=== PATIENT | female | born 1950 | race Caucasian/White ===

== ENCOUNTER 2025-01-13 15:26 | Emergency (ER) | payer OTHER, MEDICARE ==
[2025-01-13] MEDS ORDERED: TDAP (DIPHTH,PERTUSS(ACELL),TET VAC) 0.5 ML VIAL IMVAC ONE (16:58)
[2025-01-13] MEDS ORDERED: LIDOCAINE 1% 20 ML MDV ONE (16:58)
--- NOTE | 2025-01-13 17:24 | RAD REPORT ---
EXAMINATION: CT LUMBAR SPINE WITHOUT CONTRAST CLINICAL INDICATION: Fall with back pain TECHNIQUE: Axial CT images were obtained through the lumbar spine in soft tissue and bone windows wit hout intravenous contrast. Coronal and Sagittal reformatted images were created from the data set. One or more of the following dose reduction techniques were used: Automated exposure control, adjustm ent of the mA and/ or kV according to patient size, and/or iterative reconstruction. Unless otherwise specified, incidental findings do not require dedicated imaging follow-up. COMPARISON: No prior exam. FINDINGS: For purposes of this dictation, it is assumed that there are 5 non rib-bearing lumbar type vertebrae, and the most caudal fully segmented lumbar vertebra is labeled L5. Nondisplaced fracture left transverse process L1. Mildly displaced fracture left transverse process of L3 No dislocation. Neurostimulator device in place IMPRESSION: Fractures left transverse processes L1 and L3
--- NOTE | 2025-01-13 17:30 | RAD REPORT ---
EXAMINATION: CT PELVIS WITHOUT CONTRAST CLINICAL INDICATION: Pelvic pain status post fall TECHNIQUE: CT pelvis was performed, without IV contrast, as per department protocol. Axial, sagittal and coronal reconstructions were obtained. One or more of the following dose reduction techniques were used: Automated exposure control, adjustment of the mA and/or kV according to patient size, and/ or iterative reconstruction. Unless otherwise specified, incidental findings do not require dedicated imaging follow-up. COMPARISON: No prior exam. FINDINGS: No pelvic fracture seen. No dislocation A significant hip joint effusion not present. Visualized muscles and subcutaneous tissues unremarkable IMPRESSION: No pelvic fracture seen
[2025-01-13] MEDS ORDERED: HYDROCODONE/APAP 7.5/325 MG TAB ONE (17:50)
--- NOTE | 2025-01-13 17:55 | EDPHYS ---
Physician Documentation [facility] Name: Elina Sanarbia Age: 74 yrs Sex: Female : 1950 Arrival Date: 01/13/2025 Time: 15:26 Bed 11 Private MD: RAFAT Physician Luis Manuel Reid HPI: 01/13 17:06 This 74 yrs old Female presents to ER via Wheelchair with complaints of Fall Injury. sb4 17:06 Patient states that she slipped and fell backwards into a shrub. Is complaining of pain sb4 in her left low back and also sustained a puncture wound/laceration to the region. Does not think that her tetanus shot is up-to-date. States that her pain is okay while she is sitting still, but intensifies when she stands or moves. Historical: - Allergies: 15:58 Codeine; bp 15:58 Sulfa (Sulfonamide Antibiotics); bp 15:58 Erythromycin; bp 15:58 TETRACYCLINES; bp - PMHx: 15:58 Hypertensive disorder; Depressive disorder; Gastroesophageal reflux disease; bp Hypercholesterolemia; - Immunization history:: Adult Immunizations up to date. - Infectious Disease History:: Denies. - Social history:: Smoking status: Patient denies any tobacco usage or history of. ROS: 17:06 Constitutional: Negative for fever, chills, and weight loss, sb4 17:06 MS/extremity: Positive for injury or acute deformity, pain, of the left low back, 17:06 Skin: Positive for laceration(s), of the left low back, 17:06 All other systems are negative, Exam: 17:07 Head/Face: Normocephalic, atraumatic. Eyes: Extra-ocular motions intact. Periorbital sb4 areas with no swelling, redness, or edema. ENT: Mucous membranes moist. Cardiovascular: Regular rate and rhythm with a normal S1 and S2. Respiratory: No increased work of breathing, no retractions or nasal flaring. Abdomen/GI: Soft, non-tender, no distension. 17:07 Constitutional: The patient appears in no acute distress, alert, awake, 17:07 Back: CVA tenderness, is absent, vertebral tenderness, is not appreciated, muscle spasm, is not present, 17:07 Skin: injury, laceration(s), the wound is approximately 2 cm(s), with a depth of .5 cm(s), of the left low back, that can be described as clean, no foreign body, linear, puncture(s), that are superficial, of the left low back, Vital Signs: 15:57 BP 159 / 78; Pulse 75; Resp 16; Temp 98; Pulse Ox 99% ; bp 17:45 BP 141 / 76; Pulse 76; Resp 18; Pulse Ox 99% ; Pain 5/10; rg5 17:45 Pain Scale: Adult rg5 Laceration: 18:26 Wound Repair of 2cm ( 0.8in ) subcutaneous laceration to left low back. Linear shaped.. sb4 Distal neuro/vascular/tendon intact. Anesthesia: Local anesthetic administered with 4 mls of 1% lidocaine. Wound prep: Simple cleansing with betadine by nurse, Wound irrigation with saline by nurse, Wound explored, Copious irrigation. Skin closed with 2 4-0 Prolene using simple sutures and sterile technique. Dressed with bandaid. Patient tolerated well. MDM: 15:57 Medical Screening Exam initiated sb4 18:26 Differential diagnosis: abrasion, contusion, fracture, laceration, multiple trauma, sb4 sprain, strain. Data reviewed: vital signs, nurses notes, radiologic studies, and as a result, I will discharge patient. Historians other than the Patient: Spouse/Significant Other: . External Records Reviewed: [place] [facility] aware, no active scheduled prescriptions. Care significantly affected by the following chronic conditions: Hypertension. Counseling: I had a detailed discussion with the patient and/or guardian regarding the historical points, exam findings, and any diagnostic results supporting the discharge/admit diagnosis, radiology results, the need for outpatient follow up, for definitive care, for suture removal in 1 week, to return to the emergency department if symptoms worsen or persist or if there are any questions or concerns that arise at home. 01/13 16:05 Order name: Pelvis Wo Cont CT; Complete Time: 17:31 sb4 01/13 16:05 Order name: CT Lumbar Spine Wo Con; Complete Time: 17:25 sb4 01/13 16:05 Order name: Wound Care; Complete Time: 16:47 sb4 01/13 16:05 Order name: Suture Tray Setup; Complete Time: 16:47 sb4 Administered Medications: 17:04 Drug: Boostrix Tdap IM 0.5 ml IM once; as a single dose Route: IM; Site: left deltoid; rg5 17:19 Follow up: Response: No adverse reaction rg5 17:45 Drug: Lidocaine Infiltration (1 %) 20 ml 20 ml Infiltration once; to bedside {Note: rg5 given by provider.} Volume: 20 ml; Route: Infiltration; 17:55 Drug: Hydrocodone-Acetaminophen PO (7.5 mg-325 mg) 1 tabs PO once Route: PO; rg5 18:13 Follow up: Response: No adverse reaction; Pain is decreased rg5 Disposition Summary: 01/13/25 17:55 Discharge Ordered Notes: Location: Home sb4 Problem: new sb4 Symptoms: have improved sb4 Condition: Stable sb4 Diagnosis - Fall on same level, unspecified sb4 - Left transverse process fractures L1 and L3 sb4 - Laceration without foreign body of left lower back sb4 Followup: sb4 - With: Private Physician - When: As needed - Reason: Recheck today's complaints, Re-evaluation by your physician Discharge Instructions: - Discharge Summary Sheet sb4 - Transverse Process Fracture sb4 - Laceration Care, Adult, [id number] sb4 Forms: - Prescription Opioid Use sb4 - Patient Portal Instructions sb4 - Leadership Thank You Letter sb4 Prescriptions: - ondansetron 4 mg Oral Tablet,disintegrating - take 1 tablet ORAL route every 6 hours as needed for nausea and vomiting; 10 sb4 tablet; Refills: 0, Product Selection Permitted - Tramadol 50 mg Oral Tablet - take 1 tablet ORAL route every 8 hours as needed; 12 tablet; Refills: 0, sb4 Product Selection Permitted - methocarbamol 750 mg Oral tablet - take 1 tablet ORAL route every 4 hours; 20 tablet; Refills: 0, Product sb4 Selection Permitted Signatures: Dispatcher [employer] EDStas Mendoza RN RN Shantel Dumont PA-C PAArtie sb4 Sanket Morgan, RN RN rg5 Corrections: (The following items were deleted from the chart) 16:05 16:05 Spine Lumbar Wo Con+[id number].BRZ ordered. EDND EDND 18:26 17:07 Skin: injury, puncture(s), that are superficial, of the left low back, sb4 sb4
--- NOTE | 2025-01-13 17:55 | ER ---
Nurse's Notes [facility] Name: Elina Sanabria Age: 74 yrs Sex: Female : 1950 Arrival Date: 01/13/2025 Time: 15:26 Bed 11 Private MD: Diagnosis: Fall on same level, unspecified;Left transverse process fractures L1 and L3;Laceration without foreign body of left lower back Presentation: 01/13 15:57 Chief complaint: Patient states: MECHANICAL FALL AT 1100 INTO SHRUBBERY, NO HEAD STRIKE bp OR LOC. LEFT HIP PAIN AND LAC ON BACK FROM VEGETATION. Coronavirus screen: At this time, the client does not indicate any symptoms associated with coronavirus-19. Ebola Screen: No symptoms or risks identified at this time. Initial Sepsis Screen: Does the patient meet any 2 criteria? No. Patient's initial sepsis screen is negative. Does the patient have a suspected source of infection? No. Patient's initial sepsis screen is negative. Risk Assessment: Do you want to hurt yourself or someone else? Patient reports no desire to harm self or others. Onset of symptoms was January 13, 2025 at 11:00. 15:57 Method Of Arrival: Wheelchair bp 15:57 Acuity: JAIRO 3 bp Historical: - Allergies: 15:58 Codeine; bp 15:58 Sulfa (Sulfonamide Antibiotics); bp 15:58 Erythromycin; bp 15:58 TETRACYCLINES; bp - PMHx: 15:58 Hypertensive disorder; Depressive disorder; Gastroesophageal reflux disease; bp Hypercholesterolemia; - Immunization history:: Adult Immunizations up to date. - Infectious Disease History:: Denies. - Social history:: Smoking status: Patient denies any tobacco usage or history of. Screenin:00 [facility] ED Fall Risk Assessment (Adult) History of falling in the last 3 months, rg5 including since admission Yes- single mechanical fall (1 pt) Confusion or Disorientation No (0 pts) Intoxicated or Sedated No (0 pts) Impaired Gait Yes (1 pt) Mobility Assist Device Used Yes (1 pt) Altered Elimination No (0 pt) Score/Fall Risk Level 3 or more points = High Risk Oriented to surroundings, Maintained a safe environment, Hourly rounding (assess needs \T\ fall precautionary measures) done. Abuse screen: Denies threats or abuse. Nutritional screening: No deficits noted. Tuberculosis screening: No symptoms or risk factors identified. Assessment: 16:41 Reassessment: Patient and/or family updated on plan of care and expected duration. Pain ll1 level reassessed. 17:00 General: Appears in no apparent distress. uncomfortable, Behavior is calm, cooperative, rg5 appropriate for age. Pain: Complains of pain in left mid back Quality of pain is described as aching. Neuro: Level of Consciousness is awake, alert, obeys commands, Oriented to person, place, time, situation. Cardiovascular: Patient's skin is warm and dry. Respiratory: Airway is patent Trachea midline Respiratory effort is even, unlabored. GI: Abdomen is round non-distended. : No signs and/or symptoms were reported regarding the genitourinary system. EENT: No signs and/or symptoms were reported regarding the EENT system. Derm: Skin is intact, is fragile. Musculoskeletal: Circulation, motion, and sensation intact. Range of motion: limited in all extremities. 18:00 Reassessment: Patient and/or family updated on plan of care and expected duration. Pain rg5 level reassessed. Patient is alert, oriented x 3, equal unlabored respirations, skin warm/dry/pink. Patient is alert/active/playful, equal unlabored respirations, skin warm/dry/pink. Vital Signs: 15:57 BP 159 / 78; Pulse 75; Resp 16; Temp 98; Pulse Ox 99% ; bp 17:45 BP 141 / 76; Pulse 76; Resp 18; Pulse Ox 99% ; Pain 5/10; rg5 17:45 Pain Scale: Adult rg5 ED Course: 15:46 Patient arrived in ED. im 15:51 Shantel Walsh PA-C is PHCP. sb4 15:51 Luis Maneul Reid MD is Attending Physician. sb4 15:58 Triage completed. bp 15:58 Arm band placed on. bp 16:39 Sanket Morgan, RAMONITA is Primary Nurse. rg5 16:40 Patient placed in an exam room, on a stretcher. ll1 16:41 Patient has correct armband on for positive identification. Provided Education on: ER ll1 procedures and process. 16:[address] In Process Unspecified. EDMS 16:59 CT Lumbar Spine Wo Con In Process Unspecified. EDMS 17:00 No provider procedures requiring assistance completed. rg5 18:00 Patient did not have IV access during this emergency room visit. rg5 Administered Medications: 17:04 Drug: Boostrix Tdap IM 0.5 ml IM once; as a single dose Route: IM; Site: left deltoid; rg5 17:19 Follow up: Response: No adverse reaction rg5 17:45 Drug: Lidocaine Infiltration (1 %) 20 ml 20 ml Infiltration once; to bedside {Note: rg5 given by provider.} Volume: 20 ml; Route: Infiltration; 17:55 Drug: Hydrocodone-Acetaminophen PO (7.5 mg-325 mg) 1 tabs PO once Route: PO; rg5 18:13 Follow up: Response: No adverse reaction; Pain is decreased rg5 Medication: 17:00 VIS not applicable for this client. rg5 Outcome: 17:55 Discharge ordered by . sb4 18:14 Discharged to home via wheelchair, rg5 18:14 Condition: stable rg5 18:14 Discharge instructions given to patient, Instructed on discharge instructions, Demonstrated understanding of instructions, 18:15 Patient left the ED. rg5 Signatures: Dispatcher [employer] EDStas Mendoza, RN RN Krystle Zapata RN RN ll1 Shantel Walsh, PAArtie PA-C [id number] Christie Rock Rommel, RN RN rg5
[2025-01-13 20:53] VITALS: TEMP 98; O2SAT 99
[2025-01-13 20:54] VITALS: BP 141/76
== END 2025-01-13 18:15 | disposition home or self-care (01) ==
LOC: ER 15:26
PROC: 0JQ70ZZ Repair Back Subcutaneous Tissue and Fascia, Open Approach (ICD-10-PCS; principal; 2025-01-13)
DX: Z88.5 Allergy status to narcotic agent (principal); Z88.2 Allergy status to sulfonamides; Z88.1 Allergy status to other antibiotic agents; I10 Essential (primary) hypertension; K21.9 Gastro-esophageal reflux disease without esophagitis; E78.00 Pure hypercholesterolemia, unspecified; S32.019A Unspecified fracture of first lumbar vertebra, initial encounter for closed fracture; S32.039A Unspecified fracture of third lumbar vertebra, initial encounter for closed fracture; W01.0XXA Fall on same level from slipping, tripping and stumbling without subsequent striking against object, initial encounter; Y93.9 Activity, unspecified; Y92.017 Garden or yard in single-family (private) house as the place of occurrence of the external cause; S31.010A Laceration without foreign body of lower back and pelvis without penetration into retroperitoneum, initial encounter; Z23 Encounter for immunization
CPT/HCPCS: 72131; 72192; 90715; 12001; J2003; 12031; 96372; 99284